=== PATIENT | female | born 1955 | race Caucasian/White ===

== ENCOUNTER 2025-01-14 15:52 | Outpatient (CLI) | payer MEDICARE, OTHER ==
[2025-01-14 16:45] VITALS: PULSE 69; RESP 16; O2SAT 98
== END 2025-01-14 23:59 | disposition home or self-care (01) ==
LOC: RT 15:52
PROVIDERS: ATTEND Nurse Practitioner Family
DX: R06.02 Shortness of breath (principal); J98.8 Other specified respiratory disorders
CPT/HCPCS: 94010; 94760